=== PATIENT | female | born 1960 | race Caucasian/White ===

== ENCOUNTER 2018-01-08 20:02 | Emergency (ER) | payer MEDICARE, MEDICAID ==
--- NOTE | 2018-01-08 22:13 | RAD ---
LUMBAR SPINE THREE VIEWS: 01/08/18 HISTORY: 57-year-old female with low back pain for over a month. FINDINGS: Minimal bony demineralization. The disc spaces appear adequately preserved. No evidence for acute fra cture or dislocation or focal bone lesion. There are some lower lumbar spine facet arthrosis changes. Prominent aortic calcification without evidence of aneurysm. IMPRESSION: No significant acute process involving the lumbar spine. Mild spondylosis. Prominent aortic calcifica tion without evidence of aneurysm. POS: [facility]
== END 2018-01-08 23:10 | disposition home or self-care (01) ==
LOC: ERS 20:02
DX: M54.42 Lumbago with sciatica, left side (principal); M54.41 Lumbago with sciatica, right side; K21.9 Gastro-esophageal reflux disease without esophagitis; J45.909 Unspecified asthma, uncomplicated; F31.9 Bipolar disorder, unspecified; F17.210 Nicotine dependence, cigarettes, uncomplicated; Z79.899 Other long term (current) drug therapy
CPT/HCPCS: 72100

== ENCOUNTER 2021-02-18 21:53 | Emergency (ER) | payer MEDICARE, MEDICAID ==
[2021-02-19 00:33] LABS: Bilirubin Negative (Negative); Blood, Urine Negative (Negative); Clarity Clear (Clear); Glucose, Urine (Dipstick) Normal (Negative); Ketone, Urine Negative (Negative); Leukocyte Negative Leu/uL (Negative); Nitrite Negative (Negative); Protein, Urine (Dipstick) Negative (Neg-Trace); Specific Gravity, Urine 1.004 (1.002-1.036); Urobilinogen Normal mg/dL (Less than 2); pH, Urine 5.5 (5.0-9.0)
[2021-02-19 00:36] LABS: #Basophils 0.1 thou/uL (0.0-0.2); #Eosinphils 0.1 thou/uL (0.0-0.7); #Lymphocytes 2.8 thou/uL (1.20-3.40); #Monocytes 0.5 thou/uL (0.11-0.59); #Neutrophils 4.9 thou/uL (1.40-6.50); %Basophils 1.3 % (0.0-1.0); %Eosinophils 1.7 % (0.0-10.0); %Lymphocytes 33.6 % (21.0-51.0); %Monocytes 5.7 % (0.0-10.0); %Neutrophils 57.7 % (42.0-75.0); Hemoglobin 13.9 g/dL (12.0-16.0); Mean Corpuscular HGB CONC 33.2 g/dL (32.0-36.0); Mean Corpuscular Hemoglobin 35.5 pg (27.0-31.0); Mean Platelet Volume 8.4 fL (7.4-10.4); Platelet Count 183 thou/uL (130-400); RBC Distribution Width 12.6 % (11.5-14.5); Red Blood Cell (RBC) Count 3.91 mill/uL (4.20-5.40); White Blood Cell (WBC) Count 8.4 thou/uL (4.8-10.8)
[2021-02-19 00:48] LABS: Acetaminophen Less than 6.0 mcg/mL (10.0-30.0); Alcohol 149 mg/dL (Less than 10); Salicylate Less than 8.0 mg/dL (15.0-30.0)
[2021-02-19 00:50] LABS: ALT (SGPT) 10 U/L (8-55); AST (SGOT) 15 U/L (5-34); Albumin 3.5 g/dL (3.5-5.0); Alkaline Phosphatase 78 U/L (40-110); Anion Gap 17 mmol/L (10-20); Bilirubin, Total 0.2 mg/dL (0.2-1.2); Calc. Creatinine Clearance 0 mL/min (70-130); Calcium 8.5 mg/dL (7.8-10.44); Carbon Dioxide 21 mmol/L (22-29); Chloride 103 mmol/L (98-107); Globulin 2.4 g/dL (2.4-3.5); Glucose 90 mg/dL (70-105); Protein, Total 5.9 g/dL (6.0-8.3); Sodium 137 mmol/L (136-145)
[2021-02-19 00:52] LABS: Amphetamine Not Detected (NotDetected); Barbiturates Screen Not Detected (NotDetected); Benzodiazepine Screen Not Detected (NotDetected); Cocaine Metabolite Screen Not Detected (NotDetected); Medtox Control Line Valid? VALID (VALID); Medtox Reader # READER 4; Methadone Not Detected (NotDetected); Methamphetamine Not Detected (NotDetected); Opiate Screen Not Detected (NotDetected); Oxycodone Screen Not Detected (NotDetected); Phencyclidine (PCP) Not Detected (NotDetected); THC/Cannabinoid Screen Not Detected (NotDetected); Tricyclic Screen Detected (NotDetected)
[2021-02-19 00:59] LABS: BUN (Urea Nitrogen) 6 mg/dL (9.8-20.1)
== END 2021-02-19 06:33 | disposition home or self-care (01) ==
LOC: ERS 21:53
DX: F10.129 Alcohol abuse with intoxication, unspecified (principal); Y90.6 Blood alcohol level of 120-199 mg/100 ml; R41.82 Altered mental status, unspecified; K21.9 Gastro-esophageal reflux disease without esophagitis; J45.909 Unspecified asthma, uncomplicated; F17.210 Nicotine dependence, cigarettes, uncomplicated
CPT/HCPCS: 36415; 51701; 70450; 80053; 80306; 80307; 81003; 85025; 93005

== ENCOUNTER 2021-07-17 08:52 | Outpatient (CLI) | payer MEDICARE, MEDICAID | END 2021-07-17 08:53 | disposition home or self-care (01) | LOC: BICULT 08:52 | PROVIDERS: ATTEND Family Medicine | DX: Z13.6 Encounter for screening for cardiovascular disorders (principal); Z12.2 Encounter for screening for malignant neoplasm of respiratory organs; I73.9 Peripheral vascular disease, unspecified; F17.218 Nicotine dependence, cigarettes, with other nicotine-induced disorders; J44.9 Chronic obstructive pulmonary disease, unspecified; R91.8 Other nonspecific abnormal finding of lung field; I25.10 Atherosclerotic heart disease of native coronary artery without angina pectoris; I70.0 Atherosclerosis of aorta | CPT/HCPCS: 71271; 76775 ==

== ENCOUNTER 2021-07-17 10:12 | Outpatient (CLI) | payer MEDICARE, MEDICAID | END 2021-07-17 10:13 | disposition home or self-care (01) | LOC: BICMAMMO 10:12 | PROVIDERS: ATTEND Family Medicine | DX: Z12.31 Encounter for screening mammogram for malignant neoplasm of breast (principal); Z80.3 Family history of malignant neoplasm of breast | CPT/HCPCS: 77063; 77067 ==

== ENCOUNTER 2022-01-09 20:45 | Observation (INO) | payer MEDICARE, MEDICAID ==
[2022-01-09] MEDS ORDERED: Magnesium 2 GM/50 ML BAG (IN WATER) ONE (21:25)
[2022-01-09 21:29] LABS: #Basophils 0.1 thou/uL (0.0-0.2); #Eosinphils 0.1 thou/uL (0.0-0.7); #Lymphocytes 3.1 thou/uL (1.20-3.40); #Monocytes 0.7 thou/uL (0.11-0.59); #Neutrophils 5.9 thou/uL (1.40-6.50); %Basophils 1.2 % (0.0-1.0); %Lymphocytes 31.1 % (21.0-51.0); %Monocytes 6.8 % (0.0-10.0); %Neutrophils 59.9 % (42.0-75.0); Mean Corpuscular HGB CONC 33.4 g/dL (32.0-36.0); Mean Corpuscular Hemoglobin 36.7 pg (27.0-31.0); Mean Platelet Volume 8.2 fL (7.4-10.4); Platelet Count 189 thou/uL (130-400); RBC Distribution Width 12.2 % (11.5-14.5); White Blood Cell (WBC) Count 9.8 thou/uL (4.8-10.8)
[2022-01-09] MEDS ORDERED: Dexamethasone 10 MG/ML VIAL ONE (21:39)
[2022-01-09 22:58] LABS: ALT (SGPT) 12 U/L (8-55); AST (SGOT) 16 U/L (5-34); Albumin 3.6 g/dL (3.5-5.0); Alkaline Phosphatase 80 U/L (40-110); Anion Gap 16 mmol/L (10-20); BUN (Urea Nitrogen) 7 mg/dL (9.8-20.1); Bilirubin, Total 0.3 mg/dL (0.2-1.2); Calc. Creatinine Clearance 0 mL/min (70-130); Calcium 8.5 mg/dL (7.8-10.44); Carbon Dioxide 22 mmol/L (22-29); Chloride 99 mmol/L (98-107); Globulin 2.4 g/dL (2.4-3.5); Glucose 92 mg/dL (70-105); Lipase 25 U/L (8-78); Magnesium 1.8 mg/dL (1.6-2.6); Potassium 3.5 mmol/L (3.5-5.1); Sodium 133 mmol/L (136-145)
[2022-01-10 00:20] LABS: Acetaminophen Less than 10.0 mcg/mL (10.0-30.0); Alcohol 169 mg/dL (Less than 10); Salicylate Less than 8.0 mg/dL (15.0-30.0)
[2022-01-10] MEDS ORDERED: Bisacodyl 5 MG TAB PO PRN (00:22)
[2022-01-10] MEDS ORDERED: Acetaminophen 325 MG TAB PO PRN ×2 (00:22→00:30)
[2022-01-10] MEDS ORDERED: Ondansetron PF 4 MG/2 ML Vial IVP PRN ×2 (00:22→00:30)
[2022-01-10] MEDS ORDERED: HYDROcodone/Acetaminophen 7.5/325 mg Tablet PO PRN (00:22)
[2022-01-10] MEDS ORDERED: Nitroglycerin 0.4 MG TAB (25 Tab Bottle) SL PRN (00:22)
[2022-01-10] MEDS ORDERED: Guaifenesin DM 100-10/5 ML UDCUP PO PRN (00:22)
[2022-01-10] MEDS ORDERED: Lorazepam 2 MG/ML VIAL IM PRN (00:28)
[2022-01-10] MEDS ORDERED: Lorazepam 1 MG TAB PO PRN (00:28)
[2022-01-10] MEDS ORDERED: Sodium Chloride 0.9% 1,000 ML IV SCH (00:30)
[2022-01-10] MEDS ORDERED: Ondansetron ODT 4 MG TAB SL PRN (00:30)
[2022-01-10] MEDS ORDERED: Electrolyte Replacement Protocol 1 EACH FS SCH (00:30)
[2022-01-10 00:37] LABS: Amphetamine Not Detected (NotDetected); Barbiturates Screen Not Detected (NotDetected); Benzodiazepine Screen Not Detected (NotDetected); Cocaine Metabolite Screen Not Detected (NotDetected); Methadone Not Detected (NotDetected); Methamphetamine Not Detected (NotDetected); Opiate Screen Not Detected (NotDetected); Oxycodone Screen Not Detected (NotDetected); Phencyclidine (PCP) Not Detected (NotDetected); THC/Cannabinoid Screen Not Detected (NotDetected); Tricyclic Screen Detected (NotDetected)
[2022-01-10] MEDS ORDERED: Aspirin Chewable 81 MG TAB PO SCH (01:15)
[2022-01-10] MEDS ORDERED: Folic Acid 1 MG TAB PO SCH (01:15)
[2022-01-10 01:30] VITALS: BMI 22.6
[2022-01-10] MEDS ORDERED: Thiamine 100 MG TAB PO SCH (01:30)
[2022-01-10] MEDS: Sodium Chloride 0.9% 1,000 ML IV SCH ×2 (01:41→16:08)
[2022-01-10] MEDS: Nicotine 21 MG PATCH TD SCH ×2 (01:41→01:42)
[2022-01-10] MEDS ORDERED: Magnesium 2 GM/50 ML(in water) 2 GM in Premix Bag 1 BAG IVPB SCH (02:00)
[2022-01-10 02:49] LABS: Troponin I Less than 0.010 ng/mL (< 0.028)
[2022-01-10 04:38] LABS: #Lymphocytes 0.5 thou/uL (1.20-3.40); #Monocytes 0.1 thou/uL (0.11-0.59); #Neutrophils 6.2 thou/uL (1.40-6.50); %Basophils 0.2 % (0.0-1.0); %Eosinophils 0.3 % (0.0-10.0); %Lymphocytes 6.7 % (21.0-51.0); %Monocytes 0.7 % (0.0-10.0); Hemoglobin 14.6 g/dL (12.0-16.0); Mean Corpuscular HGB CONC 33.9 g/dL (32.0-36.0); Mean Platelet Volume 7.8 fL (7.4-10.4); Platelet Count 167 thou/uL (130-400); RBC Distribution Width 12.2 % (11.5-14.5); Red Blood Cell (RBC) Count 3.94 mill/uL (4.20-5.40); White Blood Cell (WBC) Count 6.7 thou/uL (4.8-10.8)
[2022-01-10 04:43] LABS: ALT (SGPT) 11 U/L (8-55); AST (SGOT) 18 U/L (5-34); Albumin 3.8 g/dL (3.5-5.0); Alkaline Phosphatase 88 U/L (40-110); Anion Gap 15 mmol/L (10-20); BUN (Urea Nitrogen) 7 mg/dL (9.8-20.1); Bilirubin, Total 0.3 mg/dL (0.2-1.2); Calc. Creatinine Clearance 74 mL/min (70-130); Calcium 8.2 mg/dL (7.8-10.44); Carbon Dioxide 20 mmol/L (22-29); Chloride 106 mmol/L (98-107); Cholesterol 168 mg/dl (< 200 Desired); Globulin 2.4 g/dL (2.4-3.5); Glucose 119 mg/dL (70-105); HDL Cholesterol 84 mg/dL (>60 Neg Risk); LDL Cholesterol, Calculated 73 mg/dL; Protein, Total 6.2 g/dL (6.0-8.3); Sodium 137 mmol/L (136-145); Triglycerides 55 mg/dL (Less than 150)
[2022-01-10 04:52] LABS: Troponin I Less than 0.010 ng/mL (< 0.028)
[2022-01-10] MEDS: methylPREDNISolone Sod Succ/PF 125 MG/2 ML VIAL IVP SCH ×3 (05:01→16:08)
[2022-01-10] MEDS ORDERED: Nicotine 14 MG PATCH TD PRN (08:01)
[2022-01-10] MEDS ORDERED: Enoxaparin Sodium 40 MG/0.4 ML SYRINGE SC SCH (09:00)
[2022-01-10] MEDS ORDERED: Clopidogrel Bisulfate 75 MG TAB PO SCH (09:00)
[2022-01-10] MEDS ORDERED: Regadenoson 0.4 MG/5 ML SYRINGE ONE (09:20)
[2022-01-10] MEDS: Famotidine 20 MG TAB PO SCH ×2 (15:05→20:12)
[2022-01-10] MEDS: Aspirin Chewable 81 MG TAB PO SCH (16:06)
[2022-01-10] MEDS: Thiamine 100 MG TAB PO SCH (16:06)
[2022-01-10] MEDS: Multivit, Therapeutic 1 TAB PO SCH (16:07)
[2022-01-10] MEDS: Folic Acid 1 MG TAB PO SCH (16:07)
[2022-01-10 16:18] LABS: SARS-CoV-2 PCR by NAA Not Detected (NotDetected)
[2022-01-10] MEDS ORDERED: Mag-Al 1200 mg/1200 mg/30 ML UDCUP PO PRN (16:34)
[2022-01-10] MEDS: guaiFENesin ER 600 MG TAB PO SCH (20:12)
[2022-01-11] MEDS ORDERED: predniSONE 20 MG TAB PO SCH (08:00)
[2022-01-11 08:09] VITALS: BP 158/78; TEMP 98
[2022-01-11] MEDS: Multivit, Therapeutic 1 TAB PO SCH (08:37)
[2022-01-11] MEDS: Famotidine 20 MG TAB PO SCH (08:38)
[2022-01-11] MEDS: guaiFENesin ER 600 MG TAB PO SCH (08:38)
[2022-01-11] MEDS: Thiamine 100 MG TAB PO SCH (08:38)
[2022-01-11] MEDS: Folic Acid 1 MG TAB PO SCH (08:38)
[2022-01-11] MEDS: Aspirin Chewable 81 MG TAB PO SCH (08:38)
== END 2022-01-11 10:17 | disposition home or self-care (01) ==
LOC: ERS 20:45 → 2SW 23:56
PROVIDERS: ADMIT Internal Medicine; ATTEND Internal Medicine
DX: R07.89 Other chest pain (principal); J44.1 Chronic obstructive pulmonary disease with (acute) exacerbation; S91.202A Unspecified open wound of left great toe with damage to nail, initial encounter; F41.9 Anxiety disorder, unspecified; F10.229 Alcohol dependence with intoxication, unspecified; D75.89 Other specified diseases of blood and blood-forming organs; K21.9 Gastro-esophageal reflux disease without esophagitis; E87.1 Hypo-osmolality and hyponatremia; F17.210 Nicotine dependence, cigarettes, uncomplicated; F32.A Depression, unspecified; G89.11 Acute pain due to trauma; M85.872 Other specified disorders of bone density and structure, left ankle and foot; Z79.899 Other long term (current) drug therapy; Z88.0 Allergy status to penicillin; Z88.5 Allergy status to narcotic agent; Z20.822 Contact with and (suspected) exposure to COVID-19; W20.8XXA Other cause of strike by thrown, projected or falling object, initial encounter; Y90.6 Blood alcohol level of 120-199 mg/100 ml
CPT/HCPCS: 71045; 73630; 78452; 80053 ×2; 80061; 80306; 80307; 83690; 83735; 84484 ×3; 85025 ×2; 93005; 93017; 94640 ×4; 94760; A9500; U0003; U0005; 36415; 96374; 96375; 96376; G0378; J1100; J2785; J2930; J3475; J7050; J7512; J7620

== ENCOUNTER 2022-01-20 13:43 | Inpatient (IN) | payer MEDICARE, MEDICAID ==
[~2022-01-20 13:43] MED LIST: Iopamidol 370 76% 100 ML VIAL ONE
[2022-01-20 14:53] LABS: #Basophils 0.1 thou/uL (0.0-0.2); #Eosinphils 0.1 thou/uL (0.0-0.7); #Monocytes 0.6 thou/uL (0.11-0.59); #Neutrophils 6.8 thou/uL (1.40-6.50); %Basophils 0.6 % (0.0-1.0); %Eosinophils 1.4 % (0.0-10.0); %Lymphocytes 20.5 % (21.0-51.0); %Monocytes 6.6 % (0.0-10.0); Hemoglobin 14.8 g/dL (12.0-16.0); Mean Corpuscular HGB CONC 32.2 g/dL (32.0-36.0); Mean Corpuscular Hemoglobin 35.7 pg (27.0-31.0); Mean Platelet Volume 7.7 fL (7.4-10.4); Platelet Count 233 thou/uL (130-400); RBC Distribution Width 12.5 % (11.5-14.5); Red Blood Cell (RBC) Count 4.15 mill/uL (4.20-5.40); White Blood Cell (WBC) Count 9.6 thou/uL (4.8-10.8)
[2022-01-20 15:16] LABS: ALT (SGPT) 8 U/L (8-55); AST (SGOT) 15 U/L (5-34); Albumin 3.7 g/dL (3.5-5.0); Alkaline Phosphatase 80 U/L (40-110); Anion Gap 13 mmol/L (10-20); BUN (Urea Nitrogen) 7 mg/dL (9.8-20.1); Bilirubin, Total 0.3 mg/dL (0.2-1.2); Calc. Creatinine Clearance 0 mL/min (70-130); Calcium 9.1 mg/dL (7.8-10.44); Carbon Dioxide 24 mmol/L (22-29); Chloride 107 mmol/L (98-107); Glucose 92 mg/dL (70-105); Potassium 4.1 mmol/L (3.5-5.1); Protein, Total 6.7 g/dL (6.0-8.3); Sodium 140 mmol/L (136-145)
[2022-01-20] MEDS ORDERED: Aspirin Chewable 81 MG TAB ONE (16:00)
[2022-01-20] MEDS ORDERED: Cefepime 2 GM VIAL ONE (16:00)
[2022-01-20] MEDS ORDERED: Vancomycin 1 GM/200 ML BAG ONE (16:42)
[2022-01-20] MEDS ORDERED: hydrALAZINE 20 MG/ML VIAL SLOW IVP PRN (17:36)
[2022-01-20 18:41] LABS: Troponin I Less than 0.010 ng/mL (< 0.028)
[2022-01-20] MEDS: Nicotine 14 MG PATCH TD SCH (18:50)
[2022-01-20 19:48] VITALS: BMI 22.4
[2022-01-20 21:19] LABS: Troponin I Less than 0.010 ng/mL (< 0.028)
[2022-01-20] MEDS: Vancomycin 1 GM in Premix Bag 1 BAG IVPB SCH (21:56)
[2022-01-21 00:58] LABS: SARS-CoV-2 PCR by NAA Not Detected (NotDetected)
[2022-01-21] MEDS: Cefepime 1 GM in Sodium Chloride 0.9% 100 ML IVPB SCH ×2 (04:40→17:25)
[2022-01-21 04:54] LABS: #Basophils 0.1 thou/uL (0.0-0.2); #Eosinphils 0.1 thou/uL (0.0-0.7); #Lymphocytes 2.2 thou/uL (1.20-3.40); #Monocytes 0.7 thou/uL (0.11-0.59); %Basophils 0.6 % (0.0-1.0); %Eosinophils 1.4 % (0.0-10.0); %Lymphocytes 24.6 % (21.0-51.0); %Monocytes 7.2 % (0.0-10.0); %Neutrophils 66.3 % (42.0-75.0); Hemoglobin 13.7 g/dL (12.0-16.0); Mean Corpuscular HGB CONC 32.6 g/dL (32.0-36.0); Mean Platelet Volume 7.4 fL (7.4-10.4); Platelet Count 215 thou/uL (130-400); RBC Distribution Width 12.4 % (11.5-14.5); Red Blood Cell (RBC) Count 3.81 mill/uL (4.20-5.40)
[2022-01-21 05:17] LABS: Anion Gap 10 mmol/L (10-20); BUN (Urea Nitrogen) 8 mg/dL (9.8-20.1); Calc. Creatinine Clearance 63 mL/min (70-130); Carbon Dioxide 27 mmol/L (22-29); Chloride 106 mmol/L (98-107); Glucose 91 mg/dL (70-105); Sodium 139 mmol/L (136-145)
[2022-01-21] MEDS: Enoxaparin Sodium 40 MG/0.4 ML SYRINGE SC SCH (09:07)
[2022-01-21] MEDS: Folic Acid 1 MG TAB PO SCH (09:08)
[2022-01-21] MEDS: Multivitamin W/ Minerals 1 TAB PO SCH (09:09)
[2022-01-21] MEDS: Thiamine 100 MG TAB PO SCH (09:09)
[2022-01-21] MEDS: Vancomycin 1 GM in Premix Bag 1 BAG IVPB SCH ×2 (09:10→20:02)
[2022-01-21] MEDS: Nicotine 14 MG PATCH TD SCH (17:26)
[2022-01-21] MEDS ORDERED: Albuterol Sulfate 1.25 MG/3 ML NEB NEB PRN (18:23)
[2022-01-21 20:42] LABS: Vancomycin, Trough 13.9 ug/mL
[2022-01-21] MEDS: Acetaminophen 325 MG TAB PO PRN (22:17)
[2022-01-22] MEDS: Cefepime 1 GM in Sodium Chloride 0.9% 100 ML IVPB SCH ×2 (03:39→15:32)
[2022-01-22] MEDS: Enoxaparin Sodium 40 MG/0.4 ML SYRINGE SC SCH (08:56)
[2022-01-22] MEDS: Thiamine 100 MG TAB PO SCH (08:57)
[2022-01-22] MEDS: Multivitamin W/ Minerals 1 TAB PO SCH (08:57)
[2022-01-22] MEDS: Folic Acid 1 MG TAB PO SCH (08:57)
[2022-01-22] MEDS: Vancomycin 1 GM in Premix Bag 1 BAG IVPB SCH ×2 (11:11→20:27)
[2022-01-22] MEDS: Nicotine 14 MG PATCH TD SCH (17:10)
[2022-01-23] MEDS: Cefepime 1 GM in Sodium Chloride 0.9% 100 ML IVPB SCH ×2 (05:09→16:16)
[2022-01-23 06:05] LABS: Hemoglobin 14.2 g/dL (12.0-16.0); Mean Corpuscular HGB CONC 32.7 g/dL (32.0-36.0); Mean Corpuscular Hemoglobin 35.9 pg (27.0-31.0); Mean Platelet Volume 7.6 fL (7.4-10.4); Platelet Count 212 thou/uL (130-400); RBC Distribution Width 12.2 % (11.5-14.5); Red Blood Cell (RBC) Count 3.94 mill/uL (4.20-5.40); White Blood Cell (WBC) Count 9.9 thou/uL (4.8-10.8)
[2022-01-23 06:27] LABS: Anion Gap 11 mmol/L (10-20); BUN (Urea Nitrogen) 11 mg/dL (9.8-20.1); Calc. Creatinine Clearance 68 mL/min (70-130); Calcium 9.3 mg/dL (7.8-10.44); Carbon Dioxide 27 mmol/L (22-29); Chloride 105 mmol/L (98-107); Glucose 98 mg/dL (70-105); Potassium 4.1 mmol/L (3.5-5.1); Sodium 139 mmol/L (136-145)
[2022-01-23] MEDS: Vancomycin 1 GM in Premix Bag 1 BAG IVPB SCH ×3 (08:20→21:43)
[2022-01-23] MEDS: Folic Acid 1 MG TAB PO SCH (08:21)
[2022-01-23] MEDS: Enoxaparin Sodium 40 MG/0.4 ML SYRINGE SC SCH (08:21)
[2022-01-23] MEDS: Multivitamin W/ Minerals 1 TAB PO SCH (08:21)
[2022-01-23] MEDS: Thiamine 100 MG TAB PO SCH (08:21)
[2022-01-23] MEDS: Acetaminophen 325 MG TAB PO PRN (09:41)
[2022-01-23] MEDS: Nicotine 14 MG PATCH TD SCH (17:22)
[2022-01-23] MEDS: Ondansetron ODT 4 MG TAB PO PRN (22:39)
[2022-01-24] MEDS: Cefepime 1 GM in Sodium Chloride 0.9% 100 ML IVPB SCH ×2 (04:29→16:08)
[2022-01-24 08:25] LABS: Vancomycin, Trough 26.3 ug/mL
[2022-01-24] MEDS ORDERED: Vancomycin HCl 500 MG in Premix Bag 1 BAG IVPB SCH (08:45)
[2022-01-24] MEDS: Enoxaparin Sodium 40 MG/0.4 ML SYRINGE SC SCH (08:52)
[2022-01-24] MEDS: Acetaminophen 325 MG TAB PO PRN (08:52)
[2022-01-24] MEDS: Folic Acid 1 MG TAB PO SCH (08:53)
[2022-01-24] MEDS: Thiamine 100 MG TAB PO SCH (08:53)
[2022-01-24] MEDS: Multivitamin W/ Minerals 1 TAB PO SCH (08:53)
[2022-01-24 17:06] LABS: Vancomycin, Random 16.8 ug/mL (See Comment)
[2022-01-24] MEDS: Nicotine 14 MG PATCH TD SCH (18:31)
[2022-01-24] MEDS: Vancomycin 1 GM in Premix Bag 1 BAG IVPB SCH (18:33)
[2022-01-24 18:55] LABS: Troponin I Less than 0.010 ng/mL (< 0.028)
[2022-01-24] MEDS: Ondansetron ODT 4 MG TAB PO PRN (21:49)
[2022-01-24 22:17] LABS: Troponin I Less than 0.010 ng/mL (< 0.028)
[2022-01-25] MEDS: Cefepime 1 GM in Sodium Chloride 0.9% 100 ML IVPB SCH ×2 (04:13→16:43)
[2022-01-25] MEDS ORDERED: Polyethylene Glycol 3350 17 GM Packet PO PRN (08:16)
[2022-01-25] MEDS: Enoxaparin Sodium 40 MG/0.4 ML SYRINGE SC SCH (09:28)
[2022-01-25] MEDS: Multivitamin W/ Minerals 1 TAB PO SCH (09:28)
[2022-01-25] MEDS: Folic Acid 1 MG TAB PO SCH (09:28)
[2022-01-25] MEDS: Thiamine 100 MG TAB PO SCH (09:28)
[2022-01-25] MEDS: Docusate 100 MG CAP PO PRN (09:28)
[2022-01-25 17:17] LABS: Vancomycin, Random 11.9 ug/mL (See Comment)
[2022-01-25] MEDS: Nicotine 14 MG PATCH TD SCH (18:00)
[2022-01-25] MEDS: Vancomycin 1 GM in Premix Bag 1 BAG IVPB SCH (18:21)
[2022-01-25] MEDS: Ondansetron ODT 4 MG TAB PO PRN (20:37)
[2022-01-26] MEDS: Cefepime 1 GM in Sodium Chloride 0.9% 100 ML IVPB SCH ×2 (04:04→15:21)
[2022-01-26] MEDS: Enoxaparin Sodium 40 MG/0.4 ML SYRINGE SC SCH (08:10)
[2022-01-26] MEDS: Thiamine 100 MG TAB PO SCH (08:10)
[2022-01-26] MEDS: Multivitamin W/ Minerals 1 TAB PO SCH (08:11)
[2022-01-26] MEDS: Folic Acid 1 MG TAB PO SCH (08:11)
[2022-01-26] MEDS ORDERED: Famotidine/PF 20 mg/2ml Vial ONE (08:31)
[2022-01-26] MEDS ORDERED: fentaNYL Citrate/PF 100 MCG/2 ML SYRINGE ONE (08:31)
[2022-01-26] MEDS ORDERED: ePHEDrine 50 MG/ML VIAL ONE (08:48)
[2022-01-26] MEDS ORDERED: Ondansetron PF 4 MG/2 ML Vial ONE (08:48)
[2022-01-26] MEDS ORDERED: Lidocaine 1% PF 5 ML VIAL ONE (08:48)
[2022-01-26] MEDS ORDERED: Metoclopramide HCl 10 MG/2 ML VIAL ONE (08:48)
[2022-01-26] MEDS ORDERED: PROPOFOL 200 MG/20 ML VIAL ONE (08:48)
[2022-01-26] MEDS ORDERED: Ondansetron HCl/PF 4 MG/2 ML Vial IVP PRN (08:58)
[2022-01-26] MEDS ORDERED: Fentanyl 100 MCG/2 ML VIAL ONE (09:42)
[2022-01-26] MEDS ORDERED: Fentanyl 250 MCG/5 ML VIAL ONE (09:42)
[2022-01-26] MEDS ORDERED: Calcium Carbonate 500 MG ChewTAB PO PRN (11:52)
[2022-01-26] MEDS: Acetaminophen 325 MG TAB PO PRN (12:08)
[2022-01-26] MEDS: Ketorolac Tromethamine 30 MG/ML VIAL IVP PRN ×2 (15:17→21:22)
[2022-01-26] MEDS ORDERED: Nicotine 14 MG PATCH TD PRN (15:56)
[2022-01-26] MEDS ORDERED: Electrolyte Replacement Protocol 1 EACH FS SCH (16:00)
[2022-01-26] MEDS ORDERED: Electrolyte Replacement Protocol FS PRN (16:15)
[2022-01-26 17:52] LABS: Vancomycin, Trough 10.6 ug/mL
[2022-01-26] MEDS: Vancomycin 1 GM in Premix Bag 1 BAG IVPB SCH (17:55)
[2022-01-27 06:06] LABS: #Eosinphils 0.2 thou/uL (0.0-0.7); #Monocytes 0.9 thou/uL (0.11-0.59); #Neutrophils 5.6 thou/uL (1.40-6.50); %Basophils 0.4 % (0.0-1.0); %Eosinophils 2.5 % (0.0-10.0); %Lymphocytes 13.6 % (21.0-51.0); %Monocytes 11.1 % (0.0-10.0); %Neutrophils 72.5 % (42.0-75.0); Hemoglobin 12.1 g/dL (12.0-16.0); Mean Corpuscular HGB CONC 33.4 g/dL (32.0-36.0); Mean Platelet Volume 7.8 fL (7.4-10.4); Platelet Count 188 thou/uL (130-400); RBC Distribution Width 11.9 % (11.5-14.5); Red Blood Cell (RBC) Count 3.28 mill/uL (4.20-5.40); White Blood Cell (WBC) Count 7.7 thou/uL (4.8-10.8)
[2022-01-27] MEDS: Cefepime 1 GM in Sodium Chloride 0.9% 100 ML IVPB SCH ×2 (06:07→16:02)
[2022-01-27 06:27] LABS: Anion Gap 11 mmol/L (10-20); BUN (Urea Nitrogen) 13 mg/dL (9.8-20.1); Calc. Creatinine Clearance 62 mL/min (70-130); Calcium 8.5 mg/dL (7.8-10.44); Carbon Dioxide 25 mmol/L (22-29); Chloride 105 mmol/L (98-107); Glucose 96 mg/dL (70-105); Magnesium 1.8 mg/dL (1.6-2.6); Potassium 4.3 mmol/L (3.5-5.1); Sodium 137 mmol/L (136-145)
[2022-01-27] MEDS ORDERED: Magnesium 2 GM/50 ML(in water) 2 GM in Premix Bag 1 BAG IVPB SCH (08:00)
[2022-01-27] MEDS: Folic Acid 1 MG TAB PO SCH (08:22)
[2022-01-27] MEDS: Enoxaparin Sodium 40 MG/0.4 ML SYRINGE SC SCH (08:22)
[2022-01-27] MEDS: Multivitamin W/ Minerals 1 TAB PO SCH (08:22)
[2022-01-27] MEDS: Thiamine 100 MG TAB PO SCH (08:22)
[2022-01-27] MEDS: Docusate 100 MG CAP PO PRN (08:35)
[2022-01-27] MEDS: Cyanocobalamin (Vitamin B-12) 1,000 MCG TAB PO SCH (08:36)
[2022-01-27] MEDS: Ketorolac Tromethamine 30 MG/ML VIAL IVP PRN ×2 (13:41→20:41)
[2022-01-27 16:44] LABS: SARS-CoV-2 PCR by NAA Not Detected (NotDetected)
[2022-01-27] MEDS: Ondansetron ODT 4 MG TAB PO PRN (17:39)
[2022-01-27] MEDS: Vancomycin 1 GM in Premix Bag 1 BAG IVPB SCH (18:38)
[2022-01-28] MEDS: Cefepime 1 GM in Sodium Chloride 0.9% 100 ML IVPB SCH (04:04)
[2022-01-28] MEDS: Cyanocobalamin (Vitamin B-12) 1,000 MCG TAB PO SCH (09:32)
[2022-01-28] MEDS: Thiamine 100 MG TAB PO SCH (09:32)
[2022-01-28] MEDS: Multivitamin W/ Minerals 1 TAB PO SCH (09:32)
[2022-01-28] MEDS: Folic Acid 1 MG TAB PO SCH (09:32)
[2022-01-28] MEDS: Enoxaparin Sodium 40 MG/0.4 ML SYRINGE SC SCH (09:32)
[2022-01-28] MEDS: Ketorolac Tromethamine 30 MG/ML VIAL IVP PRN (09:38)
[2022-01-28] MEDS: Acetaminophen 325 MG TAB PO PRN (13:32)
[2022-01-28 14:04] VITALS: BP 159/79; TEMP 98.7
== END 2022-01-28 14:36 | disposition home or self-care (01) | DRG 505 ==
LOC: ERS 13:43 → 2SW 16:08 → OBSVTOIN 01-21 08:18 → T4-A 01-22 13:36 → 2NO 01-24 19:55 → T4-A 01-25 15:12
PROVIDERS: ADMIT Internal Medicine; ATTEND Internal Medicine
PROC: 0Y6Q0Z3 Detachment at Left 1st Toe, Low, Open Approach (ICD-10-PCS; principal; 2022-01-26)
DX: M86.172 Other acute osteomyelitis, left ankle and foot (principal); Z20.822 Contact with and (suspected) exposure to COVID-19; I73.9 Peripheral vascular disease, unspecified; F17.210 Nicotine dependence, cigarettes, uncomplicated; R07.89 Other chest pain; F10.20 Alcohol dependence, uncomplicated; K21.9 Gastro-esophageal reflux disease without esophagitis; F41.9 Anxiety disorder, unspecified; N18.2 Chronic kidney disease, stage 2 (mild); D53.9 Nutritional anemia, unspecified; J44.9 Chronic obstructive pulmonary disease, unspecified; F39 Unspecified mood [affective] disorder; F31.9 Bipolar disorder, unspecified; R91.8 Other nonspecific abnormal finding of lung field; E04.1 Nontoxic single thyroid nodule; E83.42 Hypomagnesemia; L29.9 Pruritus, unspecified; R00.0 Tachycardia, unspecified; Z88.1 Allergy status to other antibiotic agents; Z88.5 Allergy status to narcotic agent; Z88.0 Allergy status to penicillin; Z88.8 Allergy status to other drugs, medicaments and biological substances; Z79.899 Other long term (current) drug therapy; Z79.52 Long term (current) use of systemic steroids; Z90.49 Acquired absence of other specified parts of digestive tract; Z71.6 Tobacco abuse counseling; Z71.41 Alcohol abuse counseling and surveillance of alcoholic; Z28.310 Unvaccinated for COVID-19
CPT/HCPCS: 36415; 71045; 71275; 80048; 80053; 80202; 83735; 84484; 85025; 85027; 85379; 86140; 87040; 93005; 93010; 94640; 96365; 96366; 96375; G0378; J0692; J1650; J1885; J2405; J2704; J2765; J3010; J3370; J3475; J3490; J7620; Q0162; Q9967; S0028; U0003; U0005

== ENCOUNTER 2022-10-11 16:26 | Inpatient (IN) | payer MEDICARE, MEDICAID ==
[~2022-10-11 16:26] MED LIST changes: -Iopamidol 370 76% 100 ML VIAL ONE; +Iopamidol-370 76% 500 ML 1 ML ONE
[2022-10-11] MEDS ORDERED: methylPREDNISolone Sod Succ/PF 125 MG/2 ML VIAL ONE (17:08)
[2022-10-11] MEDS ORDERED: Albuterol 2.5 MG/0.5 ML NEB ONE (17:20)
[2022-10-11] MEDS ORDERED: Ipratropium/Albuterol 3 ML NEB ONE (17:20)
[2022-10-11] MEDS ORDERED: Ipratropium Bromide 2.5 ml Neb ONE (17:27)
[2022-10-11 17:36] LABS: #Basophils 0.1 thou/uL (0.0-0.2); #Eosinphils 0.1 thou/uL (0.0-0.7); #Lymphocytes 1.8 thou/uL (1.20-3.40); #Monocytes 0.8 thou/uL (0.11-0.59); #Neutrophils 6.2 thou/uL (1.40-6.50); %Basophils 0.7 % (0.0-1.0); %Eosinophils 1.2 % (0.0-10.0); %Lymphocytes 20.2 % (21.0-51.0); %Monocytes 8.7 % (0.0-10.0); %Neutrophils 69.2 % (42.0-75.0); Hemoglobin 15.9 g/dL (12.0-16.0); Mean Corpuscular HGB CONC 34.7 g/dL (32.0-36.0); Platelet Count 219 10x3/uL (130-400); RBC Distribution Width 12.3 % (11.5-14.5); Red Blood Cell (RBC) Count 4.18 mill/uL (4.20-5.40)
[2022-10-11 17:57] LABS: ALT (SGPT) 28 U/L (8-55); AST (SGOT) 25 U/L (5-34); Albumin 3.4 g/dL (3.4-4.8); Alkaline Phosphatase 107 U/L (40-110); Anion Gap 17 mmol/L (10-20); BUN (Urea Nitrogen) 5 mg/dL (9.8-20.1); Bilirubin, Total 0.3 mg/dL (0.2-1.2); Calc. Creatinine Clearance 0 mL/min (70-130); Calcium 8.9 mg/dL (7.8-10.44); Carbon Dioxide 20 mmol/L (23-31); Chloride 96 mmol/L (98-107); Estimated GFR 103; Globulin 2.8 g/dL (2.4-3.5); Glucose 88 mg/dL (80-115); Potassium 3.8 mmol/L (3.5-5.1); Protein, Total 6.2 g/dL (5.8-8.1); Sodium 129 mmol/L (136-145)
[2022-10-11] MEDS ORDERED: Fentanyl 100 MCG/2 ML VIAL ONE (20:44)
[2022-10-11] MEDS ORDERED: Senokot S 8.6-50 MG TAB PO PRN (22:47)
[2022-10-11] MEDS ORDERED: Bisacodyl 5 MG TAB PO PRN (22:47)
[2022-10-11] MEDS ORDERED: Nicotine 14 MG PATCH ONE (23:10)
[2022-10-11] MEDS: Nicotine 14 MG PATCH TD SCH (23:13)
[2022-10-12] MEDS ORDERED: Lidocaine 5% Patch TD SCH (01:45)
[2022-10-12 04:35] LABS: SARS-CoV-2 NAA Rapid Test Not Detected (NotDetected)
[2022-10-12 06:53] LABS: Anion Gap 13 mmol/L (10-20); BUN (Urea Nitrogen) 5 mg/dL (9.8-20.1); Calc. Creatinine Clearance 0 mL/min (70-130); Calcium 9.4 mg/dL (7.8-10.44); Carbon Dioxide 21 mmol/L (23-31); Chloride 104 mmol/L (98-107); Estimated GFR 102; Glucose 125 mg/dL (80-115); Sodium 133 mmol/L (136-145)
[2022-10-12] MEDS ORDERED: Multivitamin W/ Minerals 1 TAB ONE (09:56)
[2022-10-12] MEDS ORDERED: Famotidine 20 MG TAB ONE (09:56)
[2022-10-12] MEDS ORDERED: Folic Acid 1 MG TAB ONE (09:56)
[2022-10-12] MEDS ORDERED: Thiamine 100 MG TAB ONE (09:56)
[2022-10-12] MEDS: Cyanocobalamin (Vitamin B-12) 1,000 MCG TAB PO SCH (09:59)
[2022-10-12] MEDS: Famotidine 20 MG TAB PO SCH ×2 (09:59→21:27)
[2022-10-12] MEDS: Folic Acid 1 MG TAB PO SCH (10:00)
[2022-10-12] MEDS: Multivitamin W/ Minerals 1 TAB PO SCH (10:09)
[2022-10-12] MEDS: Thiamine 100 MG TAB PO SCH (10:10)
[2022-10-12] MEDS ORDERED: Acetaminophen 325 MG TAB ONE (12:12)
[2022-10-12] MEDS ORDERED: Ketorolac Tromethamine 30 MG/ML VIAL IVP SCH (12:15)
[2022-10-12] MEDS: Acetaminophen 325 MG TAB PO PRN (12:16)
[2022-10-12 12:24] LABS: Troponin I Less than 0.010 ng/mL (< 0.028)
[2022-10-12] MEDS ORDERED: Ketorolac Tromethamine 30 MG/ML VIAL ONE (12:26)
[2022-10-12] MEDS ORDERED: Transdermal Patch Removal TOP SCH (14:00)
[2022-10-12] MEDS: Ipratropium/Albuterol 3 ML NEB NEB SCH ×3 (14:31→21:36)
[2022-10-12] MEDS: methylPREDNISolone Sod Succ 40 MG VIAL IVP SCH ×3 (18:44→23:35)
[2022-10-12] MEDS: traMADol HCl 50 MG TAB PO PRN (20:05)
[2022-10-12 20:46] VITALS: BMI 20.1
[2022-10-12] MEDS: Venlafaxine 75 MG TAB PO SCH (21:27)
[2022-10-12] MEDS: Nicotine 14 MG PATCH TD SCH (23:41)
[2022-10-13] MEDS: Ipratropium/Albuterol 3 ML NEB NEB SCH ×6 (00:51→22:20)
[2022-10-13] MEDS: methylPREDNISolone Sod Succ 40 MG VIAL IVP SCH ×3 (05:40→18:18)
[2022-10-13] MEDS: traMADol HCl 50 MG TAB PO PRN ×3 (05:45→18:20)
[2022-10-13] MEDS: Acetaminophen 325 MG TAB PO PRN ×2 (07:35→16:51)
[2022-10-13] MEDS ORDERED: FLU VACC QS2022-23(6MOS UP)/PF 60 MCG/0.5 ML SYRINGE IM ONE (09:00)
[2022-10-13] MEDS: Multivitamin W/ Minerals 1 TAB PO SCH (09:45)
[2022-10-13] MEDS: Lidocaine 5% Patch TD SCH (09:45)
[2022-10-13] MEDS: Famotidine 20 MG TAB PO SCH (09:46)
[2022-10-13] MEDS: Folic Acid 1 MG TAB PO SCH (09:46)
[2022-10-13] MEDS: Thiamine 100 MG TAB PO SCH (09:46)
[2022-10-13] MEDS: Cyanocobalamin (Vitamin B-12) 1,000 MCG TAB PO SCH (09:46)
[2022-10-13] MEDS ORDERED: GUAIFENESIN SF SOLN 200 MG/10 ML UDCUP PO PRN (15:50)
[2022-10-13] MEDS: Benzonatate 100 MG CAP PO SCH (20:14)
[2022-10-13] MEDS: Venlafaxine 75 MG TAB PO SCH (20:14)
[2022-10-13] MEDS: Transdermal Patch Removal TOP SCH (20:15)
[2022-10-13] MEDS: Nicotine 14 MG PATCH TD SCH (22:02)
[2022-10-14] MEDS: Ipratropium/Albuterol 3 ML NEB NEB SCH ×3 (00:01→07:40)
[2022-10-14] MEDS: methylPREDNISolone Sod Succ 40 MG VIAL IVP SCH ×3 (00:12→17:58)
[2022-10-14 05:43] LABS: Anion Gap 13 mmol/L (10-20); BUN (Urea Nitrogen) 13 mg/dL (9.8-20.1); Calc. Creatinine Clearance 57 mL/min (70-130); Calcium 9.7 mg/dL (7.8-10.44); Carbon Dioxide 26 mmol/L (23-31); Chloride 102 mmol/L (98-107); Estimated GFR 88; Glucose 125 mg/dL (80-115); Potassium 4.2 mmol/L (3.5-5.1); Sodium 137 mmol/L (136-145)
[2022-10-14 05:49] LABS: Band 4 % (5-11); Lymphocytes 3 % (21-51); MDiff Complete? YES; Macrocytosis MODERATE=16-30 cells (100X) (0-5/hpf); Mean Corpuscular Hemoglobin 36.8 pg (27.0-31.0); Mean Platelet Volume 7.8 fL (7.4-10.4); Monocytes 6 % (0-10); Neutrophil 87 % (42-75); Ovalocytes SLIGHT = 2-5 cells (100X) (0-1/hpf); Platelet Count 217 10x3/uL (130-400); Platelet Morphology Comment Appears Adequate; RBC Distribution Width 12.5 % (11.5-14.5); Red Blood Cell (RBC) Count 4.35 mill/uL (4.20-5.40); White Blood Cell (WBC) Count 17.9 10x3/uL (4.8-10.8)
[2022-10-14] MEDS: Benzonatate 100 MG CAP PO SCH ×3 (07:46→19:43)
[2022-10-14] MEDS: Multivitamin W/ Minerals 1 TAB PO SCH (07:46)
[2022-10-14] MEDS: Cyanocobalamin (Vitamin B-12) 1,000 MCG TAB PO SCH (07:46)
[2022-10-14] MEDS: Folic Acid 1 MG TAB PO SCH (07:46)
[2022-10-14] MEDS: Thiamine 100 MG TAB PO SCH (07:46)
[2022-10-14] MEDS: Lansoprazole 15 MG/5 ML (BATCHED)UDCUP PO SCH (07:46)
[2022-10-14] MEDS: Lidocaine 5% Patch TD SCH (07:54)
[2022-10-14] MEDS: traMADol HCl 50 MG TAB PO PRN ×2 (07:58→14:42)
[2022-10-14] MEDS: Acetaminophen 325 MG TAB PO PRN ×2 (09:28→14:42)
[2022-10-14] MEDS: Ipratropium Bromide 2.5 ml Neb NEB PRN (17:58)
[2022-10-14] MEDS: Ketorolac Tromethamine 30 MG/ML VIAL IVP PRN (19:43)
[2022-10-14] MEDS: Venlafaxine 75 MG TAB PO SCH (19:43)
[2022-10-14] MEDS: Transdermal Patch Removal TOP SCH (19:44)
[2022-10-14] MEDS: Nicotine 14 MG PATCH TD SCH (19:44)
[2022-10-15 05:06] LABS: #Lymphocytes 1.6 thou/uL (1.20-3.40); #Monocytes 1.1 thou/uL (0.11-0.59); #Neutrophils 10.9 thou/uL (1.40-6.50); %Basophils 0.3 % (0.0-1.0); %Eosinophils 0.1 % (0.0-10.0); %Lymphocytes 11.6 % (21.0-51.0); %Monocytes 7.9 % (0.0-10.0); Hemoglobin 14.8 g/dL (12.0-16.0); Mean Corpuscular HGB CONC 33.9 g/dL (32.0-36.0); Mean Corpuscular Hemoglobin 37.6 pg (27.0-31.0); Mean Platelet Volume 7.9 fL (7.4-10.4); Platelet Count 189 10x3/uL (130-400); RBC Distribution Width 12.6 % (11.5-14.5); Red Blood Cell (RBC) Count 3.92 mill/uL (4.20-5.40); White Blood Cell (WBC) Count 13.6 10x3/uL (4.8-10.8)
[2022-10-15 05:26] LABS: Anion Gap 10 mmol/L (10-20); BUN (Urea Nitrogen) 23 mg/dL (9.8-20.1); Calc. Creatinine Clearance 49 mL/min (70-130); Calcium 9.2 mg/dL (7.8-10.44); Carbon Dioxide 27 mmol/L (23-31); Chloride 99 mmol/L (98-107); Estimated GFR 74; Glucose 94 mg/dL (80-115); Potassium 4.4 mmol/L (3.5-5.1); Sodium 132 mmol/L (136-145)
[2022-10-15] MEDS: methylPREDNISolone Sod Succ 40 MG VIAL IVP SCH (05:29)
[2022-10-15] MEDS: Ketorolac Tromethamine 30 MG/ML VIAL IVP PRN ×2 (06:26→12:33)
[2022-10-15] MEDS: Benzonatate 100 MG CAP PO SCH ×2 (08:24→13:34)
[2022-10-15] MEDS: Folic Acid 1 MG TAB PO SCH (08:25)
[2022-10-15] MEDS: Cyanocobalamin (Vitamin B-12) 1,000 MCG TAB PO SCH (08:25)
[2022-10-15] MEDS: Lansoprazole 15 MG/5 ML (BATCHED)UDCUP PO SCH (08:26)
[2022-10-15] MEDS: Thiamine 100 MG TAB PO SCH (08:28)
[2022-10-15] MEDS: Multivitamin W/ Minerals 1 TAB PO SCH (08:28)
[2022-10-15] MEDS: Lidocaine 5% Patch TD SCH (08:28)
[2022-10-15 10:55] VITALS: BP 163/92
[2022-10-15] MEDS: Ipratropium Bromide 2.5 ml Neb NEB PRN (11:04)
[2022-10-15] MEDS ORDERED: Amlodipine 5 MG TAB PO SCH (12:45)
[2022-10-15 16:08] VITALS: TEMP 98.3
[2022-10-16] MEDS ORDERED: Amlodipine 5 MG TAB PO SCH (09:00)
== END 2022-10-15 16:15 | disposition home or self-care (01) | DRG 191 ==
LOC: ERS 16:26 → ERHOLD 20:46 → 2SW 10-12 12:49 → OBSVTOIN 10-12 15:54
PROVIDERS: ADMIT Student in an Organized Health Care Education/Training Program; ATTEND Hospitalist
DX: J44.1 Chronic obstructive pulmonary disease with (acute) exacerbation (principal); E87.1 Hypo-osmolality and hyponatremia; R07.81 Pleurodynia; N18.9 Chronic kidney disease, unspecified; F41.9 Anxiety disorder, unspecified; F31.9 Bipolar disorder, unspecified; F17.210 Nicotine dependence, cigarettes, uncomplicated; F10.20 Alcohol dependence, uncomplicated; Z20.822 Contact with and (suspected) exposure to COVID-19; I12.9 Hypertensive chronic kidney disease with stage 1 through stage 4 chronic kidney disease, or unspecified chronic kidney disease; K21.9 Gastro-esophageal reflux disease without esophagitis; Z90.49 Acquired absence of other specified parts of digestive tract; Z98.890 Other specified postprocedural states; Z88.1 Allergy status to other antibiotic agents; Z88.5 Allergy status to narcotic agent; Z88.8 Allergy status to other drugs, medicaments and biological substances; Z88.0 Allergy status to penicillin; Z79.899 Other long term (current) drug therapy
CPT/HCPCS: 36415; 36416; 71045; 71275; 80048; 80053; 83880; 84484; 85025; 85379; 93005; 94640; 94644; 94760; 96372; 96374; 96375; G0378; J0744; J1650; J1885; J2920; J2930; J3010; J7611; J7620; Q9967; U0002

== ENCOUNTER 2024-04-13 23:08 | Emergency (ER) | payer OTHER, MEDICAID ==
[2024-04-13] MEDS ORDERED: Ketorolac Tromethamine 30 MG (1 mL) VIAL ONE (23:49)
== END 2024-04-14 02:19 | disposition home or self-care (01) ==
LOC: ERS 23:08
DX: S32.019A Unspecified fracture of first lumbar vertebra, initial encounter for closed fracture (principal); I10 Essential (primary) hypertension; F17.210 Nicotine dependence, cigarettes, uncomplicated; X50.0XXA Overexertion from strenuous movement or load, initial encounter
CPT/HCPCS: 72100; 72131; 96372; 99284; J1885

== ENCOUNTER 2024-06-07 21:48 | Emergency (ER) | payer OTHER, MEDICAID ==
[2024-06-07 22:23] LABS: #Basophils 0.06 10x3/uL (0.0-0.2); %Basophils 0.5 % (0.0-1.0); %Eosinophils 3.2 % (0.0-10.0); %Lymphocytes 25.4 % (21.0-51.0); %Monocytes 7.3 % (0.0-10.0); %Neutrophils 63.3 % (42.0-75.0); Hematocrit 40.2 % (36.0-47.0); Hemoglobin 13.4 g/dL (12.0-16.0); Mean Corpuscular HGB CONC 33.3 g/dL (32.0-36.0); Platelet Count 217 10x3/uL (130-400); RBC Distribution Width 12.8 % (11.5-14.5); Red Blood Cell (RBC) Count 3.83 mill/uL (4.20-5.40)
[2024-06-07 22:51] LABS: ALT (SGPT) 25 U/L (8-55); AST (SGOT) 25 U/L (5-34); Albumin 3.2 g/dL (3.4-4.8); Alkaline Phosphatase 101 U/L (40-110); Anion Gap 13 mmol/L (10-20); BUN (Urea Nitrogen) 5 mg/dL (9.8-20.1); Bilirubin, Total 0.2 mg/dL (0.2-1.2); Calc. Creatinine Clearance 0 mL/min (70-130); Calcium 8.7 mg/dL (7.8-10.44); Carbon Dioxide 22 mmol/L (23-31); Chloride 103 mmol/L (98-107); Estimated GFR 99; Globulin 2.6 g/dL (2.4-3.5); Glucose 78 mg/dL (80-115); Potassium 3.5 mmol/L (3.5-5.1); Protein, Total 5.8 g/dL (5.8-8.1); Sodium 134 mmol/L (136-145)
[2024-06-07 22:56] LABS: Troponin I Less than 0.010 ng/mL (< 0.028)
[2024-06-07] MEDS ORDERED: Ipratropium/Albuterol 3 ML NEB ONE (23:11)
[2024-06-07] MEDS ORDERED: methylPREDNISolone Sod Succ/PF 125 MG/2 ML VIAL ONE ×3 (23:11→23:43)
[2024-06-08 02:49] LABS: Bacteria/HPF None Seen HPF (None Seen); Bilirubin Negative (Negative); Blood, Urine Negative (Negative); CAUTI Indications for Culture Pelvic or flank pain; Clarity Clear (Clear); Glucose, Urine (Dipstick) Normal (Negative); Ketone, Urine Negative (Negative); Leukocyte Negative Leu/uL (Negative); Nitrite Negative (Negative); Protein, Urine (Dipstick) Negative (Neg-Trace); RBC/HPF 0-3 HPF (0-3); Squamous Epithelial 0-3 HPF (0-3); Urobilinogen Normal mg/dL (Less than 2); WBC/HPF 0-3 HPF (0-3); pH, Urine 5.5 (5.0-9.0)
[2024-06-08 02:50] LABS: Specific Gravity, Urine 1.002 (1.002-1.036)
[2024-06-08 02:51] LABS: Urine Culture Reflex No No
== END 2024-06-08 04:25 | disposition home or self-care (01) ==
LOC: ERS 21:48
DX: J18.9 Pneumonia, unspecified organism (principal); J45.901 Unspecified asthma with (acute) exacerbation; M54.50 Low back pain, unspecified; F17.210 Nicotine dependence, cigarettes, uncomplicated
CPT/HCPCS: 71045; 74176; 80053; 81001; 84484; 85025; 93005; J2919; 36415; 96374; J7620

== ENCOUNTER 2024-06-10 15:32 | Emergency (ER) | payer OTHER ==
[2024-06-10] MEDS ORDERED: Ketorolac Tromethamine 30 MG (1 mL) VIAL ONE (16:04)
[2024-06-10] MEDS ORDERED: methylPREDNISolone Sod Succ/PF 125 MG/2 ML VIAL ONE (16:05)
[2024-06-10] MEDS ORDERED: Azithromycin 500 MG VIAL ONE (16:05)
[2024-06-10] MEDS ORDERED: Albuterol 2.5 MG (3 mL) NEB ONE (16:10)
== END 2024-06-10 17:39 | disposition home or self-care (01) ==
LOC: ERS 15:32
DX: J18.9 Pneumonia, unspecified organism (principal); I10 Essential (primary) hypertension; F17.210 Nicotine dependence, cigarettes, uncomplicated
CPT/HCPCS: 94640; 96374; 96375; 99285; J0456; J1885; J2919; J7611

== ENCOUNTER 2025-04-12 08:16 | Emergency (ER) | payer OTHER ==
[2025-04-12] MEDS ORDERED: Albuterol 2.5 MG (0.5 mL) NEB ONE ×2 (08:46→08:49)
[2025-04-12 08:52] LABS: #Basophils 0.05 10x3/uL (0.0-0.2); #Eosinophils 0.11 10x3/uL (0.0-0.7); #Monocytes 0.69 10x3/uL (0.11-0.59); #Neutrophils 6.32 10x3/uL (1.40-6.50); %Basophils 0.6 % (0.0-1.0); %Eosinophils 1.3 % (0.0-10.0); %Lymphocytes 15.3 % (21.0-51.0); %Monocytes 8.1 % (0.0-10.0); %Neutrophils 74.3 % (42.0-75.0); Hematocrit 43.9 % (36.0-47.0); Hemoglobin 14.8 g/dL (12.0-16.0); Mean Corpuscular Hemoglobin 34.1 pg (27.0-31.0); Mean Corpuscular Volume 101.2 fL (78.0-98.0); Platelet Count 264 10x3/uL (130-400); Red Blood Cell (RBC) Count 4.34 mill/uL (4.20-5.40); White Blood Cell (WBC) Count 8.50 10x3/uL (4.8-10.8)
[2025-04-12 09:14] LABS: ALT (SGPT) 16 U/L (Less than 34); AST (SGOT) 19 U/L (11-34); Albumin 3.4 g/dL (3.1-4.5); Alkaline Phosphatase 100 U/L (40-110); Anion Gap 13 mmol/L (10-20); BUN (Urea Nitrogen) 5 mg/dL (9.8-20.1); Bilirubin, Total 0.5 mg/dL (0.3-1.2); Calc. Creatinine Clearance 0 mL/min (70-130); Calcium 9.0 mg/dL (7.8-10.44); Carbon Dioxide 25 mmol/L (23-31); Chloride 104 mmol/L (98-107); Globulin 3.0 g/dL (2.4-3.5); Glucose 106 mg/dL (80-115); Potassium 3.3 mmol/L (3.5-5.1); Sodium 139 mmol/L (136-145)
[2025-04-12 09:17] LABS: Troponin I Less than 0.010 ng/mL (< 0.028)
[2025-04-12] MEDS ORDERED: Potassium Bicarbonate/Cit Ac 20 MEQ TAB ONE (10:50)
== END 2025-04-12 11:27 | disposition home or self-care (01) ==
LOC: ERS 08:16
DX: J44.1 Chronic obstructive pulmonary disease with (acute) exacerbation (principal); I10 Essential (primary) hypertension; F17.210 Nicotine dependence, cigarettes, uncomplicated
CPT/HCPCS: 71045; 80053; 83880; 84484; 85025; 87428; 93005; J2919; 36415; 96374; J7611

== ENCOUNTER 2025-05-09 06:43 | Emergency (ER) | payer OTHER ==
[2025-05-09 07:10] LABS: #Basophils 0.04 10x3/uL (0.0-0.2); #Eosinophils 0.11 10x3/uL (0.0-0.7); #Monocytes 0.76 10x3/uL (0.11-0.59); #Neutrophils 3.68 10x3/uL (1.40-6.50); %Basophils 0.7 % (0.0-1.0); %Eosinophils 1.9 % (0.0-10.0); %Lymphocytes 20.7 % (21.0-51.0); %Monocytes 13.0 % (0.0-10.0); %Neutrophils 63.0 % (42.0-75.0); Hematocrit 42.9 % (36.0-47.0); Hemoglobin 13.9 g/dL (12.0-16.0); Mean Corpuscular Hemoglobin 33.4 pg (27.0-31.0); Mean Corpuscular Volume 103.1 fL (78.0-98.0); Platelet Count 208 10x3/uL (130-400); Red Blood Cell (RBC) Count 4.16 mill/uL (4.20-5.40); White Blood Cell (WBC) Count 5.84 10x3/uL (4.8-10.8)
[2025-05-09 07:31] LABS: ALT (SGPT) 15 U/L (Less than 34); AST (SGOT) 25 U/L (11-34); Albumin 3.3 g/dL (3.1-4.5); Alkaline Phosphatase 89 U/L (40-110); Anion Gap 16 mmol/L (10-20); BUN (Urea Nitrogen) 4 mg/dL (9.8-20.1); Bilirubin, Total 0.4 mg/dL (0.3-1.2); Calc. Creatinine Clearance 0 mL/min (70-130); Calcium 8.6 mg/dL (7.8-10.44); Carbon Dioxide 20 mmol/L (23-31); Chloride 107 mmol/L (98-107); Globulin 2.6 g/dL (2.4-3.5); Glucose 107 mg/dL (80-115); Magnesium 1.9 mg/dL (1.6-2.6); Potassium 3.9 mmol/L (3.5-5.1); Sodium 139 mmol/L (136-145)
[2025-05-09 07:51] LABS: Actual Bicarbonate (HCO3v) 20.2 mEq/L (22-28); Analyzer IN Cardio ER; Base Excess -4.7 mEq/L (-2.0 to +3.0); Calcium, Ionized (venous) 1.12 mmol/L (1.16-1.32); Chloride (VBG) 104 mmol/L (98-106); Hematocrit-VBG 42 % (36.0-47.0); Hemoglobin (Hb) 14.2 g/dL (11.7-16.0); Potassium (VBG) 3.70 mmol/L (3.70-5.30); Sodium 136 mmol/L (133-146)
[2025-05-09] MEDS ORDERED: Ketorolac Tromethamine 30 MG (1 mL) VIAL ONE (07:58)
[2025-05-09] MEDS ORDERED: Ondansetron PF 4 MG/2 ML Vial ONE (07:58)
[2025-05-09 08:01] LABS: Bacteria/HPF None Seen HPF (None Seen); CAUTI Indications for Culture Pelvic or flank pain; Glucose, Urine (Dipstick) Normal (Negative); Leukocyte Negative Leu/uL (Negative); Protein, Urine (Dipstick) Negative (Neg-Trace); RBC/HPF 0-3 HPF (0-3); Specific Gravity, Urine 1.047 (1.002-1.036); WBC/HPF 0-3 HPF (0-3)
[2025-05-09 08:03] LABS: Urine Culture Reflex No No
[2025-05-09] MEDS ORDERED: Magnesium 2 GM/50 ML BAG (IN WATER) ONE (08:12)
[2025-05-09] MEDS ORDERED: Iopamidol-370 76% 500 ML MDV (1 ML CHARGE) ONE (10:23)
== END 2025-05-09 11:07 | disposition home or self-care (01) ==
LOC: ERS 06:43
DX: J18.9 Pneumonia, unspecified organism (principal); J44.1 Chronic obstructive pulmonary disease with (acute) exacerbation; I10 Essential (primary) hypertension
CPT/HCPCS: 71045; 71275; 80053; 81001; 82805; 83735; 83880; 84484; 85025; 87428; 93005; J1885; J2405; J2919; J3475; 36415; 96365; 96375; J7620; Q9967

== ENCOUNTER 2025-06-21 17:26 | Emergency (ER) | payer OTHER ==
[2025-06-21 17:43] LABS: Actual Bicarbonate (HCO3v) 24.3 mEq/L (22-28); Analyzer IN Cardio ER; Base Excess 0.5 mEq/L (-2.0 to +3.0); Calcium, Ionized (venous) 1.07 mmol/L (1.16-1.32); Chloride (VBG) 105 mmol/L (98-106); Hematocrit-VBG 44 % (36.0-47.0); Hemoglobin (Hb) 15.1 g/dL (11.7-16.0); Potassium (VBG) 4.64 mmol/L (3.70-5.30); Sodium 139 mmol/L (133-146)
[2025-06-21 17:45] LABS: #Basophils 0.05 10x3/uL (0.0-0.2); #Eosinophils 0.14 10x3/uL (0.0-0.7); #Monocytes 0.91 10x3/uL (0.11-0.59); #Neutrophils 6.12 10x3/uL (1.40-6.50); %Basophils 0.5 % (0.0-1.0); %Eosinophils 1.5 % (0.0-10.0); %Lymphocytes 22.8 % (21.0-51.0); %Monocytes 9.7 % (0.0-10.0); %Neutrophils 65.3 % (42.0-75.0); Hematocrit 40.3 % (36.0-47.0); Hemoglobin 13.4 g/dL (12.0-16.0); Mean Corpuscular Hemoglobin 33.2 pg (27.0-31.0); Mean Corpuscular Volume 99.8 fL (78.0-98.0); Platelet Count 251 10x3/uL (130-400); Red Blood Cell (RBC) Count 4.04 mill/uL (4.20-5.40); White Blood Cell (WBC) Count 9.38 10x3/uL (4.8-10.8)
[2025-06-21 18:08] LABS: ALT (SGPT) 18 U/L (Less than 34); AST (SGOT) 34 U/L (11-34); Albumin 3.6 g/dL (3.1-4.5); Alkaline Phosphatase 86 U/L (40-110); Anion Gap 13 mmol/L (10-20); BUN (Urea Nitrogen) 10 mg/dL (9.8-20.1); Bilirubin, Total 0.2 mg/dL (0.3-1.2); Calc. Creatinine Clearance 0 mL/min (70-130); Calcium 9.4 mg/dL (7.8-10.44); Carbon Dioxide 23 mmol/L (23-31); Chloride 109 mmol/L (98-107); Globulin 3.2 g/dL (2.4-3.5); Glucose 97 mg/dL (80-115); Potassium 4.7 mmol/L (3.5-5.1); Sodium 140 mmol/L (136-145)
[2025-06-21 19:20] LABS: Bacteria/HPF None Seen HPF (None Seen); CAUTI Indications for Culture Alt mental st,lethar; Glucose, Urine (Dipstick) Normal (Negative); Leukocyte Negative Leu/uL (Negative); Protein, Urine (Dipstick) 10 mg/dL (Neg-Trace); RBC/HPF 0-3 HPF (0-3); Specific Gravity, Urine 1.024 (1.002-1.036)
[2025-06-21 19:21] LABS: Urine Culture Reflex No No
[2025-06-21] MEDS ORDERED: Albuterol 200 PUFF (6.7GM INHALER) ONE (20:04)
== END 2025-06-21 20:20 | disposition home or self-care (01) ==
LOC: ERS 17:26
DX: J44.1 Chronic obstructive pulmonary disease with (acute) exacerbation (principal); I10 Essential (primary) hypertension; F17.210 Nicotine dependence, cigarettes, uncomplicated
CPT/HCPCS: 71045; 80053; 81001; 82805; 83605; 83880; 84484; 85025; 85379; 87040; 93005; 94760; J2919; 36415; 96374

== ENCOUNTER 2025-07-18 07:42 | Emergency (ER) | payer OTHER ==
[2025-07-18 08:03] LABS: Actual Bicarbonate (HCO3v) 22.0 mEq/L (22-28); Analyzer IN Cardio ER; Base Excess -3.1 mEq/L (-2.0 to +3.0); Calcium, Ionized (venous) 1.14 mmol/L (1.16-1.32); Chloride (VBG) 107 mmol/L (98-106); Hematocrit-VBG 41 % (36.0-47.0); Hemoglobin (Hb) 13.8 g/dL (11.7-16.0); Potassium (VBG) 3.89 mmol/L (3.70-5.30); Sodium 139 mmol/L (133-146)
[2025-07-18 08:09] LABS: #Basophils 0.04 10x3/uL (0.0-0.2); #Eosinophils 0.10 10x3/uL (0.0-0.7); #Monocytes 0.46 10x3/uL (0.11-0.59); #Neutrophils 3.82 10x3/uL (1.40-6.50); %Basophils 0.7 % (0.0-1.0); %Eosinophils 1.7 % (0.0-10.0); %Lymphocytes 24.3 % (21.0-51.0); %Monocytes 7.9 % (0.0-10.0); %Neutrophils 65.2 % (42.0-75.0); Hematocrit 38.2 % (36.0-47.0); Hemoglobin 12.3 g/dL (12.0-16.0); Mean Corpuscular Hemoglobin 33.0 pg (27.0-31.0); Mean Corpuscular Volume 102.4 fL (78.0-98.0); Platelet Count 284 10x3/uL (130-400); Red Blood Cell (RBC) Count 3.73 mill/uL (4.20-5.40); White Blood Cell (WBC) Count 5.85 10x3/uL (4.8-10.8)
[2025-07-18 08:34] LABS: ALT (SGPT) 29 U/L (Less than 34); AST (SGOT) 20 U/L (11-34); Albumin 3.5 g/dL (3.1-4.5); Alkaline Phosphatase 83 U/L (40-110); Anion Gap 14 mmol/L (10-20); BUN (Urea Nitrogen) 5 mg/dL (9.8-20.1); Bilirubin, Total 0.3 mg/dL (0.3-1.2); Calc. Creatinine Clearance 0 mL/min (70-130); Calcium 9.0 mg/dL (7.8-10.44); Carbon Dioxide 23 mmol/L (23-31); Chloride 109 mmol/L (98-107); Globulin 2.3 g/dL (2.4-3.5); Glucose 94 mg/dL (80-115); Potassium 4.1 mmol/L (3.5-5.1); Sodium 142 mmol/L (136-145)
[2025-07-18] MEDS ORDERED: Azithromycin 500 MG VIAL ONE (11:46)
[2025-07-18] MEDS ORDERED: cefTRIAXone (ROCEPHIN) 1 GM VIAL ONE (11:47)
== END 2025-07-18 14:20 | disposition home or self-care (01) ==
LOC: ERS 07:42
DX: J18.9 Pneumonia, unspecified organism (principal); J44.1 Chronic obstructive pulmonary disease with (acute) exacerbation; I10 Essential (primary) hypertension; F17.210 Nicotine dependence, cigarettes, uncomplicated
CPT/HCPCS: 36415; 71045; 80053; 82805; 83880; 84484; 85025; 85379; 87428; 93005; 94760; 96365; 96367; 96375; J0456; J0696; J2919

== ENCOUNTER 2025-07-21 11:08 | Emergency (ER) | payer OTHER ==
[2025-07-21 12:50] LABS: #Basophils Less than 0.03 10x3/uL (0.0-0.2); #Eosinophils Less than 0.03 10x3/uL (0.0-0.7); #Monocytes 0.10 10x3/uL (0.11-0.59); #Neutrophils 6.75 10x3/uL (1.40-6.50); %Basophils 0.3 % (0.0-1.0); %Eosinophils 0.1 % (0.0-10.0); %Lymphocytes 6.7 % (21.0-51.0); %Monocytes 1.3 % (0.0-10.0); %Neutrophils 91.2 % (42.0-75.0); Hematocrit 39.3 % (36.0-47.0); Hemoglobin 13.4 g/dL (12.0-16.0); Mean Corpuscular Hemoglobin 33.4 pg (27.0-31.0); Mean Corpuscular Volume 98.0 fL (78.0-98.0); Platelet Count 277 10x3/uL (130-400); Red Blood Cell (RBC) Count 4.01 mill/uL (4.20-5.40); White Blood Cell (WBC) Count 7.41 10x3/uL (4.8-10.8)
[2025-07-21 13:10] LABS: Bacteria/HPF None Seen HPF (None Seen); CAUTI Indications for Culture Dysuria,urgency,freq; Glucose, Urine (Dipstick) Normal (Negative); Leukocyte Negative Leu/uL (Negative); Protein, Urine (Dipstick) Negative (Neg-Trace); RBC/HPF 0-3 HPF (0-3); Specific Gravity, Urine 1.007 (1.002-1.036); WBC/HPF 0-3 HPF (0-3)
[2025-07-21 13:11] LABS: ALT (SGPT) 23 U/L (Less than 34); AST (SGOT) 50 U/L (11-34); Albumin 3.4 g/dL (3.1-4.5); Alkaline Phosphatase 82 U/L (40-110); Anion Gap 16 mmol/L (10-20); BUN (Urea Nitrogen) 6 mg/dL (9.8-20.1); Bilirubin, Total 0.3 mg/dL (0.3-1.2); Calc. Creatinine Clearance 0 mL/min (70-130); Calcium 8.9 mg/dL (7.8-10.44); Carbon Dioxide 21 mmol/L (23-31); Chloride 108 mmol/L (98-107); Globulin 3.0 g/dL (2.4-3.5); Glucose 113 mg/dL (80-115); Potassium 4.0 mmol/L (3.5-5.1); Sodium 141 mmol/L (136-145)
[2025-07-21 13:13] LABS: Urine Culture Reflex No No
== END 2025-07-21 13:43 ==
LOC: ERS 11:08
DX: J44.1 Chronic obstructive pulmonary disease with (acute) exacerbation (principal); I10 Essential (primary) hypertension; K21.9 Gastro-esophageal reflux disease without esophagitis; F17.210 Nicotine dependence, cigarettes, uncomplicated; Z76.0 Encounter for issue of repeat prescription; Z79.899 Other long term (current) drug therapy
CPT/HCPCS: 36415; 71045; 80053; 81001; 83605; 85025; 87040; 87086; 93005